=== PATIENT | female | born 1995 | race African-American/Black ===

== ENCOUNTER 2016-05-17 00:19 | Emergency (ER) | payer OTHER ==
[2016-05-17] MEDS ORDERED: NS 0.9% 1000 ML* 1,000 ML IV ONE (01:06)
[2016-05-17] MEDS ORDERED: Ondansetron INJ* 2 MG/ML VIAL IV ONE (01:06)
--- NOTE | 2016-05-17 01:23 | ED ---
Mack Owens Aidan, scribed for Yariel Sanders MD on 05/17/16 at 0110 . GI/ HPI - HPI Summary HPI Summary: 21 y/o female presents to the ED with a complaint of acute, moderate episodes of vomiting and diarrhea and acute, constant, moderate nausea. Symptoms began yesterday morning. Today, she has vomited 6 times and had diarrhea 4 times. She has not been able to keep down water. - History of Current Complaint Chief Complaint: EDNauseaVomitDiarrh Time Seen by Provider: 05/17/16 01:04 Stated Complaint: VOMITING Hx Obtained From: Patient Onset/Duration: Started Days Ago, Still Present Timing: Constant - constant nausea, Intermittent - intermittent episodes of vomiting and diarrhea, Lasting Minutes Severity: Moderate Current Severity: Moderate Pain Intensity: 0 - no pain Location of Pain: None Pain Characteristics: Other: - no pain Associated Signs and Symptoms: Positive: Nausea, Vomiting, Diarrhea Additional Signs & Symptoms: Positive: Other: - negative Aggravating Factor(s): Nothing - unknown, however, Pt has not been able to keep down liquids Alleviating Factor(s): Nothing - unknown - Allergy/Home Medications Allergies/Adverse Reactions: Allergies Allergy/AdvReac Type Severity Reaction Status Date / Time Cinnamon Allergy Itching Verified 08/09/14 19:08 pepper Allergy Itching Uncoded 08/09/14 19:08 PMH/Surg Hx/FS Hx/Imm Hx Endocrine/Hematology History: Denies: Hx Anticoagulant Therapy, Hx Diabetes, Hx Unexplained Bleeding Cardiovascular History: Denies: Hx Congestive Heart Failure, Hx Hypertension Respiratory History: Reports: Hx Asthma - PRN INHALER, RARELY USES GI History: Reports: Hx Gastroesophageal Reflux Disease - Prescribed Nexium, but does not take History: Denies: Hx Dialysis, Hx Renal Disease Musculoskeletal History: Denies: Hx Scoliosis Sensory History: Reports: Hx Contacts or Glasses Opthamlomology History: Reports: Hx Contacts or Glasses Neurological History: Denies: Hx Headaches, Other Neuro Impairments/Disorders Psychiatric History: Reports: Hx Anxiety - NO MEDS, CURRENT SITUATION - Immunization History Date of Tetanus Vaccine: utd Date of Influenza Vaccine: none Infectious Disease History: No Infectious Disease History: Denies: Traveled Outside the [place] in Last 30 Days - Family History Known Family History: Positive: Diabetes, Other - cancer - Social History Occupation: Student Lives: Alone Alcohol Use: Rare Substance Use Type: Reports: None Smoking Status (MU): Never Smoked Tobacco Have You Smoked in the Last Year: No Review of Systems Constitutional: Negative Eyes: Negative ENT: Negative Cardiovascular: Negative Respiratory: Negative Positive: Vomiting, Diarrhea, Nausea. Negative: Abdominal Pain Genitourinary: Negative Musculoskeletal: Negative Skin: Negative Neurological: Negative Psychological: Normal All Other Systems Reviewed And Are Negative: Yes Physical Exam Triage Information Reviewed: Yes Vital Signs On Initial Exam: Initial Vitals Temp Pulse Resp BP Pulse Ox 97.1 F 112 16 129/69 100 05/17/16 00:20 05/17/16 00:20 05/17/16 00:20 05/17/16 00:20 05/17/16 00:20 Vital Signs Reviewed: Yes Appearance: Positive: Well-Appearing, No Pain Distress Skin: Positive: Warm Head/Face: Positive: Normal Head/Face Inspection Eyes: Positive: [place] ENT: Positive: Hearing grossly normal Neck: Positive: Supple Respiratory/Lung Sounds: Positive: Clear to Auscultation, Breath Sounds Present Cardiovascular: Positive: RRR Abdomen Description: Positive: Nontender, No Organomegaly, Soft Bowel Sounds: Positive: Present Musculoskeletal: Positive: Strength/ROM Intact Neurological: Positive: Sensory/Motor Intact Psychiatric: Positive: Affect/Mood Appropriate - [place] Coma Scale Coma Scale Total: 15 Diagnostics - Vital Signs Vital Signs Temp Pulse Resp BP Pulse Ox 05/17/16 00:20 97.1 F 112 16 129/69 100 - Laboratory Result Diagrams: 05/17/16 01:10 05/17/16 01:10 Lab Statement: Any lab studies that have been ordered have been reviewed, and results considered in the medical decision making process. Re-Evaluation - Re-Evaluation First Eval Change: Improved GIGU Course/Dx - Diagnoses Provider Diagnoses: Gastroenteritis Discharge - Discharge Plan Condition: Stable Disposition: HOME Discharge Disposition Comment: Please follow up with your primary care physician. Patient Education Materials: Gastroenteritis (ED) Referrals: Petty Canas NP [Primary Care Provider] - The documentation as recorded by the Mack south Aidan accurately reflects the service I personally performed and the decisions made by me, Yariel Sanders MD.
[2016-05-17 01:29] LABS: Hematocrit 43 % (35-47); Hemoglobin 14.3 g/dl (12.0-16.0); Mean Corpuscular HGB Conc 33 g/dl (31-36); Mean Corpuscular Hemoglobin 30 pg (27-31); Mean Corpuscular Volume 91 fL (80-97); Mean Platelet Volume 8 um3 (7.4-10.4); Red Blood Count 4.76 10^6/ul (4.0-5.4); Red Cell Distribution Width 14 % (10.5-15)
[2016-05-17 01:36] LABS: ALT 12 U/L (7-52); AST 13 U/L (13-39); Albumin 4.2 g/dL (3.2-5.2); Alkaline Phosphatase 56 U/L (34-104); Anion Gap 7 mmol/L (2-11); BUN/Creatinine Ratio 14.7 (8-20); Blood Urea Nitrogen 11 mg/dL (6-24); C Reactive Protein 10.38 mg/L (< 5.00); CO2 Carbon Dioxide 26 mmol/L (22-32); Calcium 9.6 mg/dL (8.6-10.3); Chloride 105 mmol/L (101-111); EGFR African American 126.7 (>60); EGFR Non-African American 98.5 (>60); Globulin 3.5 g/dL (2-4); Glucose 91 mg/dL (70-100); Lipase < 10 U/L (11.0-82.0); Magnesium 1.6 mg/dL (1.9-2.7); Potassium 3.9 mmol/L (3.5-5.0); Sodium 138 mmol/L (133-145); Total Protein 7.7 g/dL (6.4-8.9)
[2016-05-17] MEDS ORDERED: Ondansetron ODT TAB* 4 MG PO ONE (02:28)
[2016-05-17] MEDS ORDERED: Ondansetron ODT TAB* 4 MG ONE (02:30)
[2016-05-17 02:38] VITALS: BP 114/65
== END 2016-05-17 02:37 | disposition home or self-care (01) ==
LOC: ED 00:19
DX: K52.9 Noninfective gastroenteritis and colitis, unspecified (principal); R11.2 Nausea with vomiting, unspecified; R19.7 Diarrhea, unspecified
CPT/HCPCS: 36415; 80053; 83690; 83735; 85025; 86140; 96374; 96375; 99283; A9270-GY; J2405

== ENCOUNTER 2017-11-08 17:58 | Emergency (ER) | payer SELFPAY ==
[2017-11-08 19:50] LABS: ABS Basophils 0 10^3/ul (0-0.2); ABS Eosinophils 0.3 10^3/ul (0-0.6); ABS Lymphocytes 2.2 10^3/ul (1.0-4.8); ABS Monocytes 0.3 10^3/ul (0-0.8); ABS Neutrophils 1.8 10^3/ul (1.5-7.7); ABS Nucleated RBC 0 10^3/ul; Hematocrit 41 % (35-47); Hemoglobin 13.8 g/dl (12.0-16.0); Lymphocyte % 48.5 % (25-47); Mean Corpuscular HGB Conc 34 g/dl (31-36); Mean Corpuscular Hemoglobin 31 pg (27-31); Mean Corpuscular Volume 93 fL (80-97); Mean Platelet Volume 8.3 um3 (7.4-10.4); Nucleated Red Blood Cells % 0.1; Platelet Count 241 10^3/ul (150-450); Red Cell Distribution Width 13 % (10.5-15); White Blood Count 4.6 10^3/ul (3.5-10.8)
[2017-11-08] MEDS ORDERED: Metoclopramide IV* 5 MG/ML 2 ML VIAL IV ONE (19:53)
[2017-11-08] MEDS ORDERED: Pantoprazole IV* 40 MG IV ONE (19:53)
[2017-11-08] MEDS ORDERED: NS 0.9% 1000 ML* 1,000 ML IV ONE ×2 (19:53)
[2017-11-08 19:59] LABS: EGFR Non-African American 84.4 (>60)
--- NOTE | 2017-11-08 20:23 | ED ---
Abdominal Pain/Female - HPI Summary HPI Summary: This is scribe Angelmckenzie Quinn documenting for attending Nazario Gabriel MD. A 22 y/o female presents to ED c/o severe pelvic and abdominal pain reaching 9/ 10 in severity. Currently the patient is in abdominal pain and pelvic pain. As per triage, "abdominal pain that radiates into the pelvis for two days. pt states she has been nauseated and has had regular bowel movements. Pt denies painful urination. Pt LMP October 07". According to the patient, she has been experiencing intermittent abdominal pain and pelvic pain for the past 2 weeks. She comes to the [facility] ED today because the pain is worse and she never had any pelvic pain. Patient denies any vaginal discharge or bleeding, no urinary symptoms. Additionally denies any diarrhea or constipation. She noted that she has been through a wide variety of scans at [facility] for the same symptoms but everything came back negative. She further noted that she is suppose to be taking her prescribed medication. She tried Nexium and probiotic but she stated it produced foam in her stomach and she ended up vomiting, so she didn't try anything else. Her doctor gave her Biotanical medication for nerves for stomach but she didn't try it because she didn't want to and at that point she didn't have abdominal pain. She stated that the abdominal pain went away for a couple months, but then it came back. She saw a specialist which was thought she had IBS. It was noted that the patient is passing gas and has bowel movements (last one yesterday). No other medical issues besides chief complaint. Current medications include Naproxen for her migraines (does not take a lot). PMHx of colonscopy and endoscopy 1-2 years ago, appendectomy (3 years ago). GI doctor was Dr. Armstrong. SHx of frequent marijuana smoker (varies per day) for 5 years, no cigarettes. LKMP was October 07 2017. I, Dr. Gabriel personally performed the services described in this documentation as scribed in my presence and it is both accurate and complete. - History of Current Complaint Chief Complaint: EDAbdPain Stated Complaint: ABD/PELVIC PAIN Time Seen by Provider: 11/08/17 19:40 Hx Obtained From: Patient Onset/Duration: Sudden Onset Timing: Constant Severity Initially: Severe Severity Currently: Severe Pain Intensity: 9 Pain Scale Used: 0-10 Numeric Location: Diffuse Radiates: Yes Radiates to: Other - Pelvis Aggravating Factor(s): Nothing Alleviating Factor(s): Nothing Associated Signs and Symptoms: Negative: Fever, Constipation, Vaginal Bleeding, Vaginal Discharge, Diarrhea Allergies/Adverse Reactions: Allergies Allergy/AdvReac Type Severity Reaction Status Date / Time cinnamon Allergy Itching Verified 11/08/17 18:07 pepper Allergy Itching Uncoded 08/09/14 19:08 PMH/Surg Hx/FS Hx/Imm Hx Endocrine/Hematology History: Denies: Hx Anticoagulant Therapy, Hx Diabetes, Hx Unexplained Bleeding Cardiovascular History: Denies: Hx Congestive Heart Failure, Hx Hypertension Respiratory History: Reports: Hx Asthma - PRN INHALER, RARELY USES GI History: Reports: Hx Gastroesophageal Reflux Disease - Prescribed Nexium, but does not take History: Denies: Hx Dialysis, Hx Renal Disease Musculoskeletal History: Denies: Hx Scoliosis Sensory History: Reports: Hx Contacts or Glasses Opthamlomology History: Reports: Hx Contacts or Glasses Neurological History: Denies: Hx Headaches, Other Neuro Impairments/Disorders Psychiatric History: Reports: Hx Anxiety - NO MEDS, CURRENT SITUATION - Immunization History Date of Tetanus Vaccine: utd Date of Influenza Vaccine: none Infectious Disease History: No Infectious Disease History: Denies: Traveled Outside the [place] in Last 30 Days - Family History Known Family History: Positive: Diabetes, Other - cancer - Social History Alcohol Use: Rare Substance Use Type: Reports: None Smoking Status (MU): Never Smoked Tobacco Have You Smoked in the Last Year: No Review of Systems Negative: Fever Positive: Abdominal Pain, Vomiting, Other - NEGATIVE: Constipation; POSITIVE: BM and passing gas. Negative: Diarrhea Negative: dysuria, discharge, pain Positive: Other - POSITIVE: Pelvic pain All Other Systems Reviewed And Are Negative: Yes Physical Exam - Summary Physical Exam Summary: VITAL SIGNS: Reviewed. GENERAL: Patient is a well-developed and nourished female who is lying comfortable in the stretcher. Patient is not in any acute respiratory distress. HEAD AND FACE: Normocephalic and atraumatic. EYES: PERRLA, EOMI x 2, No injected conjunctiva. EARS: Hearing grossly intact. Ear canals and tympanic membranes are WNL. MOUTH: Oropharynx within normal limits. NECK: Supple, trachea is midline, no adenopathy, no JVD. CHEST: Symmetric, no tenderness at palpation LUNGS: Clear to auscultation bilaterally. No wheezing or crackles. CVS: RRR, S1 and S2 present, no murmurs or gallops appreciated. ABDOMEN: Soft, epigastric tenderness. No signs of distention. Positive bowel sounds. No rebound no guarding, and no masses palpated. No abdominal bruit or pulsations. EXTREMITIES: FROM in all major joints, no edema, no cyanosis or clubbing. NEURO: Alert and oriented x 3. No acute neurological deficits. Speech is normal. SKIN: Dry and warm Patient denied PELVIC EXAM. Triage Information Reviewed: Yes Vital Signs On Initial Exam: Initial Vitals Temp Pulse Resp BP Pulse Ox 97.8 F 72 15 115/61 99 11/08/17 18:07 11/08/17 18:07 11/08/17 18:07 11/08/17 18:07 11/08/17 18:07 Vital Signs Reviewed: Yes Diagnostics - Vital Signs Vital Signs Temp Pulse Resp BP Pulse Ox 11/08/17 18:07 97.8 F 72 15 115/61 99 - Laboratory Lab Results: Lab Results 11/08/17 11/08/17 Range/Units 19:33 19:33 WBC 4.6 (3.5-10.8) 10^3/ul RBC 4.40 (4.00-5.40) 10^6/ul Hgb 13.8 (12.0-16.0) g/dl Hct 41 (35-47) % MCV 93 (80-97) fL MCH 31 (27-31) pg MCHC 34 (31-36) g/dl RDW 13 (10.5-15) % Plt Count 241 (150-450) 10^3/ul MPV 8.3 (7.4-10.4) um3 Neut % (Auto) 38.6 (38-83) % Lymph % (Auto) 48.5 H (25-47) % [place] % (Auto) 6.3 (0-7) % Eos % (Auto) 6.0 (0-6) % Baso % (Auto) 0.6 (0-2) % Absolute Neuts (auto) 1.8 (1.5-7.7) 10^3/ul Absolute Lymphs (auto) 2.2 (1.0-4.8) 10^3/ul Absolute Monos (auto) 0.3 (0-0.8) 10^3/ul Absolute Eos (auto) 0.3 (0-0.6) 10^3/ul Absolute Basos (auto) 0 (0-0.2) 10^3/ul Absolute Nucleated RBC 0 10^3/ul Nucleated RBC % 0.1 Sodium 139 (135-145) mmol/L Potassium 4.4 (3.5-5.0) mmol/L Chloride 106 (101-111) mmol/L Carbon Dioxide 29 (22-32) mmol/L Anion Gap 4 (2-11) mmol/L BUN 15 (6-24) mg/dL Creatinine 0.85 (0.51-0.95) mg/dL Est GFR ( Amer) 102.2 (>60) Est GFR (Non-Af Amer) 84.4 (>60) BUN/Creatinine Ratio 17.6 (8-20) Glucose 84 (70-100) mg/dL Calcium 9.3 (8.6-10.3) mg/dL Total Bilirubin 0.30 (0.2-1.0) mg/dL AST 15 (13-39) U/L ALT 11 (7-52) U/L Alkaline Phosphatase 65 (34-104) U/L C-Reactive Protein < 1.00 (<8.01) mg/L Total Protein 7.1 (6.4-8.9) g/dL Albumin 4.1 (3.2-5.2) g/dL Globulin 3.0 (2-4) g/dL Albumin/Globulin Ratio 1.4 (1-3) Beta HCG, Quant < 0.60 mIU/mL Result Diagrams: 11/08/17 19:33 11/08/17 19:33 Lab Statement: Any lab studies that have been ordered have been reviewed, and results considered in the medical decision making process. - Ultrasound No standard instances Ultrasound Interpretation Completed By: Radiologist - US TRANSVAGINAL: Sonographically normal uterus and ovaries. Re-Evaluation - Re-Evaluation First Eval Re-Evaluation Time: 20:28 Comment: As per nursing staff, patient doesn't want IV but wants pain medications. Patient is requesting to go home because she feels like she has been in ED forever. Abdominal Pain Fem Course/Dx - Course Course Of Treatment: This patient is a 22-year-old female who presents to the emergency department with a chief complaint of having epigastric pain and also lower abdominal / pelvic pain. She reports that she has the symptoms multiple times a year for which she has had multiple CAT scans of the abdomen and pelvis , she had a colonoscopy recently with Dr. Sandoval from and he had prescribed her Nexium however the patient did not take any of these medications. He also gave her antispasmodics but she chose not to take any of his medications. Blood test results without any significant abnormality. Beta-hCG is negative. Pelvic ultrasound: Negative exam. I offered the patient a pelvic exam but she declined. I also offered the patient normal saline, Reglan, Protonix and Benadryl and the patient declined. Patient did not want to have any IV access. At this time since the test results are within normal limits and she has had multiple CAT scans I would not repeat another abdominopelvic CT I would only be for the patient to see the primary care physician and also Dr. Sandoval. I discussed all the findings and test results with the patient. Patient was instructed to return to the emergency room immediately if any of the symptoms return or worsens. Plan of care was discussed with the patient and understands and agrees. All questions were answered at patient satisfaction. There were no further complaints or concerns. Lung exam before discharge: CTA B/L. Good air exchange. No wheezing or crackles heard. CVS: S1 and S2 present. No murmurs appreciated. Patient is alert and oriented x 3. Patient is hemodynamically stable. Patient will be discharged home with follow up PCP in the next 2-3 days - Diagnoses Differential Diagnosis: Positive: Constipation, Ectopic , Irritable Bowel Syndrome, Ovarian Cyst, , Urinary Tract Infection Provider Diagnoses: Abdominal pain Discharge - Sign-Out/Discharge Documenting (check all that apply): Patient Departure - DISCHARGE - Discharge Plan Condition: Stable Disposition: HOME Patient Education Materials: Acute Abdominal Pain (ED), Abdominal Pain (ED) Referrals: No Primary Care Phys,NOPCP [Primary Care Provider] - [facility] [Outside] - 3 Days Additional Instructions: FOLLOW UP WITH PRIMARY CARE IN 2-3 DAYS. RETURN TO ED FOR ANY NEW OR WORSENING SYMPTOMS. Attestations Scribe Attestation: This is scribe Angel Quinn documenting for attending Nazario Gabriel MD. User Type: Provider with Scribe Provider Attestation: The documentation recorded by the scribe accurately reflects the service I personally performed and the decisions made by me.
[2017-11-08 22:09] VITALS: BP 120/63
--- NOTE | 2017-11-09 11:37 | RAD ---
HISTORY: pelvic pain COMPARISONS: August 15, 2016 TECHNIQUE: Multiple transverse and longitudinal ultrasound images were obtained of the pelvis using grayscale, color Doppler, and spectral Doppler imaging using the transabdominal transducer. FINDINGS: UTERUS: The uterus measures 7.5 x 3.1 x 4.2 cm. The uterus is normal in shape, size, contour, and echotexture. ENDOMETRIUM: The endometrial stripe is smooth. The endometrium measures 0.7 cm in thickness. CUL-DE-SAC: There is no free fluid within the cul-de-sac. RIGHT OVARY: The right ovary measures 3.2 x 2.1 x 3.1 cm. Normal arterial and venous waveforms are identifiable within the ovary on spectral Doppler imaging. LEFT OVARY: The left ovary measures 2.3 x 1.7 x 3.7 cm. Normal arterial and venous waveforms are identifiable within the ovary on spectral Doppler imaging. BLADDER: The bladder is not well visualized. OTHER: None IMPRESSION: NO SONOGRAPHIC FEATURES OF TORSION. PLEASE NOTE THAT PARTIAL OR INTERMITTENT TORSION MAY BE SONOGRAPHICALLY NORMAL. R0
== END 2017-11-08 22:09 | disposition home or self-care (01) ==
LOC: ED 17:58
DX: R10.13 Epigastric pain (principal); R10.2 Pelvic and perineal pain; K21.9 Gastro-esophageal reflux disease without esophagitis; R10.30 Lower abdominal pain, unspecified
CPT/HCPCS: 36415; 76856; 80053; 84702; 85025; 86140; 99283

== ENCOUNTER 2018-02-15 15:55 | Emergency (ER) | payer SELFPAY ==
[2018-02-15] MEDS ORDERED: NS 0.9% 1000 ML* 1,000 ML IV ONE (16:56)
[2018-02-15 17:16] LABS: ABS Basophils 0 10^3/ul (0-0.2); ABS Eosinophils 0.2 10^3/ul (0-0.6); ABS Lymphocytes 2.6 10^3/ul (1.0-4.8); ABS Monocytes 0.4 10^3/ul (0-0.8); ABS Nucleated RBC 0 10^3/ul; Eosinophil % 4.2 % (0-6); Hematocrit 39 % (35-47); Hemoglobin 13.5 g/dl (12.0-16.0); Lymphocyte % 50.2 % (25-47); Mean Corpuscular HGB Conc 35 g/dl (31-36); Mean Corpuscular Hemoglobin 32 pg (27-31); Mean Corpuscular Volume 93 fL (80-97); Mean Platelet Volume 7.9 fL (7.4-10.4); Nucleated Red Blood Cells % 0.1; Platelet Count 242 10^3/ul (150-450); Red Blood Count 4.19 10^6/ul (4.00-5.40); Red Cell Distribution Width 13 % (10.5-15); White Blood Count 5.2 10^3/ul (3.5-10.8)
[2018-02-15 17:38] LABS: EGFR Non-African American 97.5 (>60)
[2018-02-15] MEDS ORDERED: Iohexol 300* (CONTRAST) 10 ML SDV IV ONE (17:55)
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
[2018-02-15] MEDS ORDERED: Morphine VIAL* 4 MG/ML VIAL (1 ml vial) IV ONE (18:09)
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
[2018-02-15] MEDS ORDERED: Ketorolac INJ* 30 MG/ML 1 ML VIAL IV PUSH ONE (20:09)
[2018-02-15] MEDS ORDERED: Ondansetron ODT TAB* 4 MG PO ONE (20:33)
[2018-02-15] MEDS ORDERED: Ondansetron ODT TAB* 4 MG ONE (20:35)
[2018-02-15 20:54] VITALS: BP 128/77
== END 2018-02-15 20:53 | disposition home or self-care (01) ==
LOC: ED 15:55
DX: S29.012A Strain of muscle and tendon of back wall of thorax, initial encounter (principal); R06.02 Shortness of breath; R07.9 Chest pain, unspecified; R10.9 Unspecified abdominal pain; M54.9 Dorsalgia, unspecified; V49.9XXA Car occupant (driver) (passenger) injured in unspecified traffic accident, initial encounter; Y92.9 Unspecified place or not applicable
CPT/HCPCS: 36415; 71260; 72125; 72128; 72131; 74177; 80053; 84702; 85025; 96374; 96375; 99284; A9270-GY; J1885; J2270; Q9967

== ENCOUNTER 2018-02-22 03:21 | Emergency (ER) | payer SELFPAY ==
[2018-02-22] MEDS ORDERED: Lidocaine 2% EPI 1:200000 MPF* 10 ML VIAL INJ ONE (03:49)
[2018-02-22] MEDS ORDERED: Lidocaine 2% EPI 1:200000 MPF*10-20 ML VIAL INJ ONE (03:50)
[2018-02-22] MEDS ORDERED: Lidocaine 2% EPI 1:200000 MPF*10-20 ML VIAL ONE (03:50)
--- NOTE | 2018-02-22 03:57 | ED ---
Laceration/Wound HPI - HPI Summary HPI Summary: The pt is a 22 y/o female presenting to [facility] c/o a RUE laceration with controlled bleeding s/p a mechanical injury. She swung her RUE at a tall lamp with the intention of breaking it. She notes pain rated 5/10 in severity. She denies tingling or numbness at the injury site. Her last tetanus shot was in 2015. Home Medications Medication Instructions Recorded Confirmed Type Albuterol Sulfate [Proair Hfa] 1 puff IN Q6H PRN 12/26/13 08/10/14 History Esomeprazole Magnesium [Nexium 40 mg PO DAILY 12/26/13 08/10/14 History 24Hr] Naprosyn 500 mg PO DAILY 12/28/13 08/10/14 History oxyCODONE/Acetamin 5/325 MG* 1 tab PO Q6H PRN #12 tab MDD 4 06/22/15 Rx [Percocet 5/325 TAB*] Hydrocodone/Acetaminophen 1 each PO Q6H #12 tablet MDD 4 02/15/18 Rx [Hydrocodone-Acetamin 5-325 mg] tablets Ondansetron TAB* [Zofran 4 MG Tab*] 4 mg PO Q6H PRN #12 tab 02/15/18 Rx - History of Current Complaint Stated Complaint: RT WRIST LACERATION Time Seen by Provider: 02/22/18 03:43 Hx Obtained From: Patient, Family/Mental Health Nurse Mechanism of Injury: Sharp/Blunt Trauma Onset/Duration: Sudden Onset, Still Present Onset Severity: Moderate Current Severity: Moderate Pain Intensity: 5 Pain Scale Used: 0-10 Numeric Associated Signs & Symptoms: Pain - Allergy/Home Medications Allergies/Adverse Reactions: Allergies Allergy/AdvReac Type Severity Reaction Status Date / Time black pepper Allergy Itching Verified 02/22/18 03:30 cinnamon Allergy Itching Verified 02/22/18 03:30 PMH/Surg Hx/FS Hx/Imm Hx Previously Healthy: No Endocrine/Hematology History: Denies: Hx Anticoagulant Therapy, Hx Diabetes, Hx Unexplained Bleeding Cardiovascular History: Denies: Hx Congestive Heart Failure, Hx Hypertension Respiratory History: Reports: Hx Asthma - PRN INHALER, RARELY USES GI History: Reports: Hx Gastroesophageal Reflux Disease - Prescribed Nexium, but does not take History: Denies: Hx Dialysis, Hx Renal Disease Musculoskeletal History: Denies: Hx Scoliosis Sensory History: Reports: Hx Contacts or Glasses Opthamlomology History: Reports: Hx Contacts or Glasses Neurological History: Denies: Hx Headaches, Other Neuro Impairments/Disorders Psychiatric History: Reports: Hx Anxiety - NO MEDS, CURRENT SITUATION - Cancer History Cancer Type, Location and Year: None reported - Immunization History Date of Tetanus Vaccine: 2015 Date of Influenza Vaccine: NO Infectious Disease History: No Infectious Disease History: Denies: Traveled Outside the [place] in Last 30 Days - Family History Known Family History: Positive: Diabetes, Other - cancer - Social History Occupation: Employed Full-time Lives: With Family Alcohol Use: Rare Substance Use Type: Reports: None Smoking Status (MU): Never Smoked Tobacco Have You Smoked in the Last Year: No Review of Systems Positive: no symptoms reported Skin: Other - RUE laceration with contolled bleeding Neurological: Negative - Tingling Negative: Numbness All Other Systems Reviewed And Are Negative: Yes Physical Exam - Summary Physical Exam Summary: Appearance: Well-appearing, Well-nourished, lying in bed comfortable Skin: Superficial abrasions on the proximal palm and a 4cm linear laceration on the distal volar forearm. No sign of tendon or nerve injury Eyes: sclera anicteric, no conjunctival pallor ENT: mucous membranes moist Neck: deferred Respiratory: No signs of respiratory distress Cardiovascular: Appears well perfused, pulses are nml Abdomen: deferred Musculoskeletal: Moving all 4 extremities without obvious discomfort Neurological: Awake and alert, mentation is normal, speech is fluent and appropriate Psychiatric: affect is normal, does not appear anxious or depressed Triage Information Reviewed: Yes Vital Signs On Initial Exam: Initial Vitals Temp Pulse Resp BP Pulse Ox 98.7 F 69 16 127/82 96 02/22/18 03:29 02/22/18 03:29 02/22/18 03:29 02/22/18 03:29 02/22/18 03:29 Vital Signs Reviewed: Yes Procedures - Laceration/Wound Repair 1 Location: upper extremity Description: Linear Anesthesia: Local, 2.0%, Lido, Epi Length, Depth and Shape: 6 cm, deep to subcutaneous fat without involving tendon , linear Betadine Prep?: No - chlorhexidine Irrigated w/ Saline (ccs): 0 - irrigated with running tap water Laceration/Wound Explored: clean Closure: Single Layer Suture Type: Nylon Number of Sutures: 8 Diagnostics - Vital Signs Vital Signs Temp Pulse Resp BP Pulse Ox 02/22/18 03:29 98.7 F 69 16 127/82 96 - Laboratory Lab Statement: Any lab studies that have been ordered have been reviewed, and results considered in the medical decision making process. Laceration Repair Course/Dx - Course Course Of Treatment: A 22 year-old F presents to the ED with a CC of a RUE laceration with controlled bleeding s/p a mechanical injury. She denies tingling or numbness at the injury site. A physical exam revealed superficial abrasions on the proximal palm and a 4cm linear laceration on the distal volar forearm. There are no signs of tendon or nerve injury. Patient will be discharged with a final Dx of R forearm laceration. Pt is agreeable with this plan. Allergies noted. - Clinical Impression Provider Diagnoses: Laceration of right forearm Discharge - Sign-Out/Discharge Documenting (check all that apply): Patient Departure - DC - Discharge Plan Condition: Improved Disposition: HOME Patient Education Materials: Care For Your Stitches (ED) Referrals: [facility] [Outside] - Billing Disposition and Condition Condition: IMPROVED Disposition: Home - Attestation Statements Document Initiated by Scribe: Yes Documenting Scribe: Tabitha Monroy Provider For Whom Tami is Documenting (Include Credential): Dr. Eligio Smalls MD Scribe Attestation: Tabitha Owens scribed for Dr. Eligio Smalls MD on 02/22/18 at 0439. Scribe Documentation Reviewed: Yes Provider Attestation: The documentation as recorded by the sailajaibTabitha cardenas accurately reflects the service I personally performed and the decisions made by me, Dr. Eligio Smalls MD
[2018-02-22 04:17] VITALS: BP 121/67
== END 2018-02-22 04:16 | disposition home or self-care (01) ==
LOC: ED 03:21
DX: S51.811A Laceration without foreign body of right forearm, initial encounter (principal); W22.8XXA Striking against or struck by other objects, initial encounter; Y92.9 Unspecified place or not applicable; J45.909 Unspecified asthma, uncomplicated
CPT/HCPCS: 12002; 99282

== ENCOUNTER 2018-02-24 16:25 | Emergency (ER) | payer SELFPAY ==
[2018-02-24 16:45] VITALS: BP 130/74
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
== END 2018-02-24 18:29 | disposition home or self-care (01) ==
LOC: ED 16:25
DX: Z04.1 Encounter for examination and observation following transport accident (principal); M54.2 Cervicalgia; M54.9 Dorsalgia, unspecified; K21.9 Gastro-esophageal reflux disease without esophagitis
CPT/HCPCS: 99281

== ENCOUNTER 2018-03-06 14:31 | Emergency (ER) | payer SELFPAY ==
[2018-03-06 14:34] VITALS: BP 115/70
--- OUTSIDE RECORDS SUMMARY | 2018-03-06 14:39 | XMS REPORT | Continuity of Care Document ---
:1995 External Reference #:[id number] Author Name Niya Patel Care Team Providers Name Role Phone Anthony Mejia MD Care Team Information Automotive Vehicle Inspector Unavailable Payers Type Date Identification Numbers Payment Provider Subscriber Onset: 2018 Policy Number: [id number] [place] [employer] Ma Nahed Reece PayID: [id number] Advance Directives Description No Information Available Problems Date Description Provider Status Onset: 02/24/2018 Mild intermittent asthma Anthony Mejia MD Active Onset: 02/24/2018 Irritable bowel syndrome with diarrhea Anthony Mejia MD Active Onset: 02/24/2018 Neck pain Anthony Mejia MD Active Onset: 02/24/2018 Low back pain Anthony Mejia MD Active Family History Description No Information Available Social History Type Date Description Comments Sex Unknown Tobacco Use Start: Unknown Patient has never smoked Smoking Status Reviewed: 02/24/18 Patient has never smoked Allergies, Adverse Reactions, Alerts Description No Known Drug Allergies Medications Medication Date Status Form Strength Qnty SIG Indications Ordering Provider Cyclobenzaprine Active Tablets 5mg 60tabs take 5mg M54.5 GILDA Phillips 018 three MD times a day as needed. Naproxen 00/0 Active Tablets 500mg 1 by Unknown 000 mouth twice a day as needed pain Immunizations Description No Information Available Vital Signs Date Vital Result Comment 02/24/2018 2:04pm Height 65.5 inches 5'5.50" Weight 159.00 lb Heart Rate 64 /min BP Systolic 130 mmHg BP Diastolic 78 mmHg Respiratory Rate 16 /min Body Temperature 98.4 F Pain Level 7 O2 % BldC Oximetry 98 % BMI (Body Mass Index) 26.1 kg/m2 Results Description No Information Available Procedures Description No Information Available Encounters Description No Information Available Plan of Treatment 02/24/2018 - Anthony Mejia, MDM54.5 Low back painNew Medication:Cyclobenzaprine HCL 5 mg - take 5mg three times a day as needed.Comments:Take no more than 1000mg naproxen daily. You can take Tylenol 650mg ever 6 hours as needed. You wereprescribed Flexeril 5mg every 8 hours as needed for a muscle relaxer. You were referred to the Physical Therapist for rehabilitation exercises. Follow-up in 4 weeks.Referral:[facility] PsychFollow up:4 week.M54.2 CervicalgiaComments:As [id number] Irritable bowel syndrome with diarrheaComments:Will monitor. Some abdominal tenderness since the exam but none on palpation today.J45.20 Mild intermittent asthma, uncomplicatedComments:Per history, stable. Not using any inhalers.
--- NOTE | 2018-03-06 15:35 | ED ---
Skin Complaint - HPI Summary HPI Summary: Patient is a 22-year-old female who presents emergency department for suture removal. Patient was seen in the ER 02/22 after sustaining laceration to her right distal forearm. Patient states she was away and unable to get sutures out until today. Symptoms are mild in severity. Denies redness, swelling or drainage from wound. No current modifying factors. - History of Current Complaint Chief Complaint: EDLacSutureRecheck Time Seen by Provider: 03/06/18 14:37 Stated Complaint: SUTURE REMOVAL RT WRIST Hx Obtained From: Patient Pain Intensity: 0 Pain Scale Used: 0-10 Numeric - Allergy/Home Medications Allergies/Adverse Reactions: Allergies Allergy/AdvReac Type Severity Reaction Status Date / Time black pepper Allergy Itching Verified 03/06/18 14:34 cinnamon Allergy Itching Verified 03/06/18 14:34 Home Medications: Home Medications NK [No Home Medications Reported] 03/06/18 [History Confirmed 03/06/18] PMH/Surg Hx/FS Hx/Imm Hx Previously Healthy: Yes Endocrine/Hematology History: Denies: Hx Anticoagulant Therapy, Hx Diabetes, Hx Unexplained Bleeding Cardiovascular History: Denies: Hx Congestive Heart Failure, Hx Hypertension Respiratory History: Reports: Hx Asthma - PRN INHALER, RARELY USES GI History: Reports: Hx Gastroesophageal Reflux Disease - Prescribed Nexium, but does not take History: Denies: Hx Dialysis, Hx Renal Disease Musculoskeletal History: Denies: Hx Scoliosis Sensory History: Reports: Hx Contacts or Glasses Opthamlomology History: Reports: Hx Contacts or Glasses Neurological History: Denies: Hx Headaches, Other Neuro Impairments/Disorders Psychiatric History: Reports: Hx Anxiety - NO MEDS, CURRENT SITUATION - Cancer History Cancer Type, Location and Year: None reported - Immunization History Date of Tetanus Vaccine: utd Date of Influenza Vaccine: none Infectious Disease History: No Infectious Disease History: Denies: Traveled Outside the [place] in Last 30 Days - Family History Known Family History: Positive: Diabetes, Other - cancer - Social History Occupation: Unemployed Lives: With Family Alcohol Use: None Substance Use Type: Reports: None Smoking Status (MU): Never Smoked Tobacco Have You Smoked in the Last Year: No Review of Systems Positive: Other - Sutures to right forearm All Other Systems Reviewed And Are Negative: Yes Physical Exam Triage Information Reviewed: Yes Vital Signs On Initial Exam: Initial Vitals Temp Pulse Resp BP Pulse Ox 97.2 F 65 17 115/70 100 03/06/18 14:32 03/06/18 14:32 03/06/18 14:32 03/06/18 14:32 03/06/18 14:32 Vital Signs Reviewed: Yes Appearance: Positive: Well-Appearing - Pt. sitting in chair in NAD. Frend present. Skin: Positive: Warm, Dry Head/Face: Positive: Normal Head/Face Inspection Eyes: Positive: Normal, EOMI Neck: Positive: Supple Musculoskeletal: Positive: Other - Sutures in place to a healing incision to the distal right forearm. No erythema, edema or drainage. Neurological: Positive: Normal, CN Intact II-III Psychiatric: Positive: Affect/Mood Appropriate Procedures - Procedure Summary Procedure Summary: Suture removal: 7 sutures removed from right forearm without difficulty. Very minimal separation of to the center of the wound. No signs of infection. Pt. tolerated well. Diagnostics - Vital Signs Vital Signs Temp Pulse Resp BP Pulse Ox 03/06/18 14:32 97.2 F 65 17 115/70 100 - Laboratory Lab Statement: Any lab studies that have been ordered have been reviewed, and results considered in the medical decision making process. Course/Dx - Course Course Of Treatment: Sutures removed as noted above. Advised to continue wound care. [facility]. To return to ER for redness , swelling or drainage. Pt. understands and agrees with plan. - Differential Diagnoses - Skin Complaint Differential Diagnoses: Cellulitis - Diagnoses Provider Diagnoses: Visit for suture removal Discharge - Sign-Out/Discharge Documenting (check all that apply): Patient Departure - Discharge Plan Condition: Good Disposition: HOME Patient Education Materials: Stitches Removal (ED) Referrals: [facility] [Outside] [facility] [Outside] Additional Instructions: Can follow up with the [facility] if needed Keep wound clean and dry Return to ER for redness, swelling or drainage from wound - Billing Disposition and Condition Condition: GOOD Disposition: Home
== END 2018-03-06 15:18 | disposition home or self-care (01) ==
LOC: ED 14:31
DX: S51.811D Laceration without foreign body of right forearm, subsequent encounter (principal); W45.8XXD Other foreign body or object entering through skin, subsequent encounter; J45.909 Unspecified asthma, uncomplicated

== ENCOUNTER 2018-10-01 11:06 | Emergency (ER) | payer OTHER ==
[2018-10-01 11:23] VITALS: BP 107/60
--- NOTE | 2018-10-01 12:38 | UC ---
Complaint Female HPI - HPI Summary HPI Summary: 23 y/o female presents to the urgent care c/o pt having vaginal discharge that has a strange odor. pt states it feels thicker , but has no change in color. no abd pain, or itching, just a different smell. no burning with urination. - History Of Current Complaint Chief Complaint: UCGU Stated Complaint: vaginal DISCHARGE Time Seen by Provider: 10/01/18 12:33 Hx Obtained From: Patient Hx Last Menstrual Period: since control no period, no bc since june Onset/Duration: Gradual Onset, Lasting Days - 2 days, Still Present Timing: Constant Severity Initially: Mild Severity Currently: Mild Pain Intensity: 0 Pain Scale Used: 0-10 Numeric Character: Not Applicable Aggravating Factor(s): Davey Alleviating Factor(s): Nothing Associated Signs And Symptoms: Positive: Vaginal Discharge. Negative: Fever, Back Pain, Nausea, Vomiting(# Of Episodes =), Genital Swelling, Genital Blisters - Risk Factors Ectopic Risk Factor: Negative Ovarian Torsion Risk Factor: Negative - Allergies/Home Medications Allergies/Adverse Reactions: Allergies Allergy/AdvReac Type Severity Reaction Status Date / Time black pepper Allergy Itching Verified 10/01/18 11:22 cinnamon Allergy Itching Verified 10/01/18 11:22 PMH/Surg Hx/FS Hx/Imm Hx Previously Healthy: Yes Respiratory History: Asthma Other History Of: Negative For: Anticoagulant Therapy - Surgical History Surgical History: Yes Surgery Procedure, Year, and Place: appendectomy - Family History Known Family History: Positive: Hypertension, Diabetes, Other - cancer - Social History Occupation: Employed Full-time Lives: With Family Alcohol Use: Rare Substance Use Type: Marijuana Smoking Status (MU): Never Smoked Tobacco Have You Smoked in the Last Year: No Household Exposure Type: Cigarettes - Immunization History Most Recent Influenza Vaccination: 2012 Most Recent Tetanus Shot: Up to date Most Recent Pneumonia Vaccination: never Vaccination Up to Date: Yes Review of Systems All Other Systems Reviewed And Are Negative: Yes Constitutional: Positive: Negative Skin: Positive: Negative Eyes: Positive: Negative ENT: Positive: Negative Respiratory: Positive: Negative Cardiovascular: Positive: Negative Gastrointestinal: Positive: Negative Genitourinary: Positive: Vaginal/Penile Discharge. Negative: Dysuria, Hematuria , Frequency Motor: Positive: Negative Neurovascular: Positive: Negative Musculoskeletal: Positive: Negative Neurological: Positive: Negative Psychological: Positive: Negative Is Patient Immunocompromised?: No Physical Exam - Summary Physical Exam Summary: Vital signs: reviewed General: well developed, well nourished female sitting in the examining table w/o any acute distress. Head: Normocephalic, no lesions. Eyes: PERRLA, EOM's full, conjunctiva clear, fundi grossly normal. Ears: EAC's clear, TM's normal. Nose: Mucosa normal, no obstruction. Throat: Clear, no exudates, no lesions. Neck: Supple, no masses, no thyromegaly, no bruits. Chest: Lungs clear, no rales, no rhonchi, no wheezes. Heart: RR, no murmurs, no rubs, no gallops. Abdomen: Soft, no tenderness, no masses, BS normal. Pelvic: I was assisted by nurse Maritza. External genitalia within normal limits. There is no lesions there is no masses noted. Speculum exam: The vaginal peck are within normal limits w/ normal clear vaginal discharge, no lesions or rashes. The cervix is closed with no lesions or masses. There is no CMT's, and no adnexal masses. Sample sent to Lab for G/C and Affirm panel. Rectal: No lesions, no hemorrhoids, Back: Normal curvature, no tenderness. Extremities: FROM, no deformities, no edema, no erythema. Neuro: Physiological, no localizing findings. Skin: Normal, no rashes, no lesions noted. Triage Information Reviewed: Yes Vital Signs: Initial Vital Signs Temp 98.5 F 10/01/18 11:18 Pulse 68 10/01/18 11:18 Resp 18 10/01/18 11:18 BP 107/60 10/01/18 11:18 Pulse Ox 97 10/01/18 11:18 Complaint Female Dx - Course Course Of Treatment: Pt with possible Bacterial vaginosis on pelvic examination. Pt Rx Metronidazole vaginal cream. UA ordered, result:trace blood. test: negative. Pt educated on STD's. Advised to f/u with [facility] for P[facility]. Specimen were sent to lab, Advised she will be notified if any abnormal result from lab. Pt understood and agreed with plan of care. - Differential Dx/Diagnosis Differential Diagnosis/HQI/PQRI: Cervicitis, Pelvic Inflammatory Disease, , Renal Colic, Sexually Transmitted Disease, Urinary Tract Infection Provider Diagnosis: Screening for STD (sexually transmitted disease), Bacterial vaginosis Discharge - Sign-Out/Discharge Documenting (check all that apply): Patient Departure - d/c home All imaging exams completed and their final reports reviewed: No Studies - Discharge Plan Condition: Stable Disposition: HOME Prescriptions: metroNIDAZOLE VAGINAL 0.75%* 1 applic VAGINAL BEDTIME #1 tube Patient Education Materials: Sexually Transmitted Diseases in Adolescents (ED) Referrals: [facility] [place] [facility] REFERRAL [Outside] - 3 Days Additional Instructions: 1- Please apply Metrogel as directed. 2- Specimen were sent to lab to screen for STD's, if anything abnormal you will receive a call from us for further treatment. 3-If not improvement of symptoms please return to the urgent care or f/u with your [facility] for further treatment of screening for other STD's - Billing Disposition and Condition Condition: STABLE Disposition: Home
[2018-10-04 14:04] LABS: Neisseria gonorrhoeae (GC) RNA Negative (Negative)
[2018-10-04 14:19] LABS: Trichomonas vaginalis Result Negative (Negative)
== END 2018-10-01 13:50 | disposition home or self-care (01) ==
LOC: UCEAST 11:06
DX: N76.0 Acute vaginitis (principal); Z11.3 Encounter for screening for infections with a predominantly sexual mode of transmission
CPT/HCPCS: 81003; 84702; 87480; 87491; 87510; 87591; 87661; 99212; G0463

== ENCOUNTER 2019-05-26 12:56 | Emergency (ER) | payer SELFPAY ==
[2019-05-26 13:34] VITALS: BP 116/57
--- NOTE | 2019-05-26 14:29 | UC ---
UC General HPI - HPI Summary HPI Summary: Here with friend but states she needs to leave in 5 minutes because she has to get her son off the bus. STates yesteday developed intermittent burning with urination, cramping and right sided low back pain. No vaginal itching. States she has increase in discharge and its more milky in texture. No fever. LMP: beginning of this month. Patient states she was last sexually active 2 months ago. Does not use protection. No hx of kidney stones. Meds: Reviewed - History of Current Complaint Chief Complaint: UCGU Stated Complaint: PERSONAL Time Seen by Provider: 05/26/19 13:54 Hx Last Menstrual Period: stopped depo, hasn't had one yet Pain Intensity: 6 - Allergy/Home Medications Allergies/Adverse Reactions: Allergies Allergy/AdvReac Type Severity Reaction Status Date / Time black pepper Allergy Itching Verified 05/26/19 13:28 cinnamon Allergy Itching Verified 05/26/19 13:28 Home Medications: Home Medications NK [No Home Medications Reported] 05/26/19 [History Confirmed 05/26/19] PMH/Surg Hx/FS Hx/Imm Hx Previously Healthy: Yes Other History Of: Negative For: Anticoagulant Therapy - Surgical History Surgical History: Yes Surgery Procedure, Year, and Place: appendectomy - Family History Known Family History: Positive: Hypertension, Diabetes, Other - cancer - Social History Alcohol Use: Rare Substance Use Type: Marijuana Smoking Status (MU): Never Smoked Tobacco Have You Smoked in the Last Year: No Household Exposure Type: Cigarettes - Immunization History Most Recent Influenza Vaccination: 2012 Most Recent Tetanus Shot: Up to date Most Recent Pneumonia Vaccination: never Vaccination Up to Date: Yes Review of Systems All Other Systems Reviewed And Are Negative: Yes Genitourinary: Positive: Dysuria, Frequency, Vaginal/Penile Itching, Vaginal/ Penile Discharge Physical Exam Triage Information Reviewed: Yes Appearance: Well-Appearing Vital Signs: Initial Vital Signs Temp 98.9 F 05/26/19 13:30 Pulse 64 05/26/19 13:30 Resp 18 05/26/19 13:30 BP 116/57 05/26/19 13:30 Pulse Ox 98 05/26/19 13:30 Vital Signs Reviewed: Yes Respiratory: Positive: Lungs clear, Normal breath sounds Cardiovascular: Positive: RRR, No Murmur Abdomen Description: Positive: Nontender, Soft Course/Dx - Course Course Of Treatment: This is a 24 yr old who presents with urinary and vaginal symptoms and right sided low back pain. U/A just showed blood no white cells. Discussed that on the differential is kidneys stones or vaginal infection. Patient needed to leave to pickling solution maker her son off the bus. I recommended she return to ultrasound and/or pelvic to test for STD, yeast and gardenella. No treatment at this time until work up is completed. Patient agreeable to returning and re-registering later today. - Diagnoses Provider Diagnosis: Vaginal discharge, Dysuria Discharge ED - Sign-Out/Discharge Documenting (check all that apply): Patient Departure All imaging exams completed and their final reports reviewed: No Studies - Discharge Plan Condition: Good Disposition: HOME Referrals: Mirian Mejia MD [Primary Care Provider] - Additional Instructions: Recommend further testing including but not limited to a pelvic exam and ultrasound to rule out kidney stone Please follow up and return as discussed - Billing Disposition and Condition Condition: GOOD Disposition: Home
== END 2019-05-26 14:00 | disposition home or self-care (01) ==
LOC: UCEAST 12:56
DX: R30.0 Dysuria (principal); N89.8 Other specified noninflammatory disorders of vagina; R35.0 Frequency of micturition; Z91.018 Allergy to other foods
CPT/HCPCS: 81003; 99211; G0463